=== PATIENT | male | born 1975 | race Caucasian/White ===

== ENCOUNTER 2017-11-30 11:29 | Emergency (ER) | payer OTHER ==
[~2017-11-30] VITALS: Ht 167.6 cm; Wt 81.7 kg
[2017-11-30 11:49] VITALS: BP 137/71
[2017-11-30] MEDS ORDERED: KEFLEX500 M1 PO (11:59)
== END 2017-11-30 12:32 | disposition home or self-care (01) ==
LOC: M.ERS 11:29
DX: S61.214A Laceration without foreign body of right ring finger without damage to nail, initial encounter (principal); W26.8XXA Contact with other sharp object(s), not elsewhere classified, initial encounter; Y93.89 Activity, other specified; Y92.89 Other specified places as the place of occurrence of the external cause; Y99.8 Other external cause status; Z88.0 Allergy status to penicillin